=== PATIENT | male | born 2005 | race Hispanic/Latino ===

== ENCOUNTER 2023-11-30 00:55 | Emergency (ER) | payer SELFPAY ==
--- NOTE | ~2023-11-30 | XR_ITS ---
EXAMINATION: XR knee RT 3V DATE: 11/30/2023 01:54 INDICATION: Right knee pain TECHNIQUE: AP, lateral and sunrise views of the right knee were obtained. COMPARISON: None. FINDINGS: Alignment is normal. No fracture. Corticated heterotopic ossicle at the distal patellar tendon likel y sequela of prior Radha-Schlatter's disease. Joint spaces appear normal on nonweightbearing imaging . No joint effusion/layering lipohemarthrosis. Soft tissues are unremarkable. IMPRESSION: 1. No joint effusion or acute osseous abnormality Reviewed, dictated and finalized at location A.
[2023-11-30 01:00] VITALS: BP 133/87; PULSE 74; RESP 14; TEMP 36.4; O2SAT 100
--- NOTE | 2023-11-30 01:09 | ED.LOWEXIN ---
HPI - Extremity Injury (Lower) General Chief Complaint: Extremity Injury, Lower Stated Complaint: knee injury Time Seen by Provider: 11/30/23 01:00 Source: patient Mode of arrival: ambulatory Limitations: no limitations History of Present Illness HPI Narrative: Patient presents with obvious right patellar dislocation. Patient was playing soccer. The exact mechanism of injury is somewhat unclear but it seems he might have stepped in a hole. He has had issues with this knee before but never a dislocation to this extent operative/surgical repair. Denies paresthesias. Related Data Allergies Allergy/AdvReac Type Severity Reaction Status Date / Time No Known Allergies Allergy Verified 11/30/23 00:56 PMFSH Social History Social History (Updated 12/01/23 @ 17:24 by Francisca Clarke MD) Social History: Enjoys playing soccer Exam Narrative: GENERAL: well-nourished, in acute distress. HEAD: Normocephalic, atraumatic. EYES: Non injected, non icteric ENT: Nares clear, no rhinorrhea or epistaxis. NECK: Supple. CHEST: Speaking in full sentences. No respiratory distress. HEART: Regular rate and rhythm. Palpable DP pulse in the right foot. ABDOMEN: Soft, nondistended. EXTREMITIES: No edema. Right patella displaced laterally. Patient holding knee in flexion and hip in flexion. SKIN: Warm, diaphoretic NEURO: No focal deficits. Alert and oriented x3. Sensation intact to gross touch in right lower extremity. PSYCH: Normal mood and affect. Course Vital Signs Vital signs: Vital Signs Temperature 97.6 F 11/30/23 01:00 Pulse Rate 74 11/30/23 01:00 Respiratory Rate 14 11/30/23 01:00 Blood Pressure 133/87 11/30/23 01:00 Pulse Oximetry 100 11/30/23 01:00 Oxygen Delivery Room Air 11/30/23 01:00 Temperature 97.6 F 11/30/23 01:00 Pulse Rate 74 11/30/23 01:00 Respiratory Rate 14 11/30/23 01:00 Blood Pressure 133/87 11/30/23 01:00 Pulse Oximetry 100 11/30/23 01:00 Oxygen Delivery Room Air 11/30/23 01:00 Procedures Orthopedic Joint Reduction Joint #1: Orthopedic Joint Reduction Date: 11/30/23 Side: right Joint Reduction Location: knee/patella Analgesia: other (Intramuscular 0.5 mg Dilaudid) Pre-Procedure Neuro Vascular Exam: normal Technique used: direct manipulation Post-reduction neuro exam: intact Post-reduction vascular: intact Post Reduction X-Ray Obtained: Yes Post Reduction X-Ray Results: reduced Splint Applied: Yes Patient Tolerated Procedure: well and no complications Additional Comments: Two operators technique RN applied slow downward pressure over quadriceps, stretching the muscle and slowly straightening the leg I provided gentle rotation of the patella lateral to anterior MDM - Extremity Injury (Lower) MDM Narrative Medical decision making narrative: Patient presents with an obvious right patellar dislocation. In the emergency department they are afebrile with vital signs within normal limits. Patient given 0.5 mg IM Dilaudid. Neurovascularly intact. Joint is reduced as above. Patient tolerates well. Anderson wrap applied to facilitate temporary immobilization while obtaining imaging to confirm no con command patellar fracture. No fracture on imaging. Knee immobilizer applied. Patient given NSAID prescription and referral for orthopedic follow-up to be done in the next 1-2 weeks. Stable for discharge. Verifies understanding and amenable with the plan. Differential Diagnosis Differential diagnosis: Likely acute internal derangement of knee and other (Patellar dislocation with their without patellar fracture) Imaging Data Attestation: I personally reviewed and interpreted this imaging study as follows: My impression: No patellar fracture on my independent assessment Radiologist's impression: Stat Rad: No evidence of acute fracture dislocation. Discharge Plan Discharge Clin
--- NOTE | 2023-11-30 01:09 | PC.NURSE ---
Ride for when pt is discharged: [facility] [phone]
[2023-11-30] MEDS: HYDROmorphone HCL INJ (*CRX) 1 MG/ML SYR IM (01:11)
== END 2023-11-30 03:06 | disposition home or self-care (01) ==
PROVIDERS: Emergency Provider Student in an Organized Health Care Education/Training Program
DX: S83.004A Unspecified dislocation of right patella, initial encounter (principal); X50.9XXA Other and unspecified overexertion or strenuous movements or postures, initial encounter; Y93.66 Activity, soccer
CPT/HCPCS: 27560; 73562; 99283; 99285; J1170